=== PATIENT | female | born 1955 | race Caucasian/White ===

== ENCOUNTER 2018-04-11 08:22 | Outpatient (CLI) | payer OTHER ==
--- NOTE | 2018-04-11 10:25 | BD ---
DEXA BONE DENSITOMETRY: (Dual energy X-ray Absorptiometry) DATE: 04/11/2018. HISTORY: A 62-year-old postmenopausal white female for baseline, age-related osteoporosis screening examinatio n. COMPARISON: None available. FINDINGS: Height 64 inches. Weight 208 pounds. Age of menopause 48 years. The bone mineral density (BMD) is given in grams per square centimeter (g/cm2): LUMBAR SPINE: BMD(g/cm2) T-score Z-score L1: 1.080 0.8 2.4 L2: 1.255 2.1 3.8 L3: 1.256 1.6 3.4 L4: 1.072 0.1 2.0 Total: 1.155 1.0 2.7 HIP: Femoral neck: 0.748 -0.9 0.6 Total: 1.088 1.2 2.4 IMPRESSION: 1) The mean bone mineral density of the lumbar spine is normal. Fracture risk is not increased. 2) The bone mineral density of the femoral neck is normal. Fracture risk is not increased. JN R POS: CET
== END 2018-04-11 08:23 | disposition home or self-care (01) ==
LOC: BICMAMMO 08:22
PROVIDERS: ATTEND Family Medicine
DX: Z12.31 Encounter for screening mammogram for malignant neoplasm of breast (principal); Z13.820 Encounter for screening for osteoporosis; R92.1 Mammographic calcification found on diagnostic imaging of breast; Z78.0 Asymptomatic menopausal state; Z80.3 Family history of malignant neoplasm of breast
CPT/HCPCS: 77063; 77067; 77080

== ENCOUNTER 2020-02-13 10:50 | Outpatient (CLI) | payer MEDICARE ==
--- NOTE | 2020-02-13 11:36 | MMO ---
Bilateral MAMMO Bilat Screen DDI+RAY. CLINICAL HISTORY: Patient is 64 years old and is seen for screening. The patient has no personal history of cancer. VIEWS: The views performed were: bilateral craniocaudal with tomosynthesis and bilateral mediolateral oblique with tomosynthesis. FILMS COMPARED: The present examination has been compared to a prior imaging study performed at [facility] on 04/11/2018. This study has been interpreted with the assistance of computer-aided detection. MAMMOGRAM FINDINGS: There are scattered fibroglandular densities. There are stable benign appearing calcifications seen in both breasts. Nodularity is stable. There are no suspicious masses, suspicious calcifications, or new areas of architectural distortion. IMPRESSION: THERE IS NO MAMMOGRAPHIC EVIDENCE OF MALIGNANCY. A ROUTINE FOLLOW-UP MAMMOGRAM IN 1 YEAR IS RECOMMENDED. THE RESULTS OF THIS EXAM WERE SENT TO THE PATIENT. ACR BI-RADS Category 2 - Benign finding MAMMOGRAPHY NOTE: 1. A negative mammogram report should not delay a biopsy if a dominant of clinically suspicious mass is present. 2. Approximately 10% to 15% of breast cancers are not detected by mammography. 3. Adenosis and dense breasts may obscure an underlying neoplasm. Reported by: BRAULIO JONES MD Electonically Signed: [id number]
--- NOTE | 2020-02-13 12:43 | BD ---
EXAM: Bone densitometry using DEXA HISTORY: 64 yo female. Screening for postmenopausal osteoporosis FINDINGS: L1--bone mineral density 1.062 g/sq cm; T score 0.7 ; Z score 2.3 L2--bone mineral density 1.235 g/sq cm; T score 1.9 ; Z score 3.7 L3--bone mineral density 1.068 g/sq cm; T score 1.7 ; Z score 3.6 L4--bone mineral density 1.099 g/sq cm; T score 0.3 ; Z score 2.4 Total L1-L4--bone mineral density 1.158 g/sq cm; T score 1.0 ; Z score 2.9 Left femoral neck--bone mineral density0.704; T score -1.3 ; Z score 0.3 Total proximal left femur--bone mineral density 1.016; T score 0.6 ; Z score 1.9 There has been an interval improvement of 0.2% in the BMD of the lumbar spine and a reduction of 6. 6% in the BMD of the proximal femur since the previous study of 04/11/2018. The 10 year fracture risk for a major osteoporotic fracture is 8.5% and for a hip fracture is 0.8%. IMPRESSION: Osteopenia
== END 2020-02-13 10:51 | disposition home or self-care (01) ==
LOC: BICMAMMO 10:50
PROVIDERS: ATTEND Family Medicine
DX: Z12.31 Encounter for screening mammogram for malignant neoplasm of breast (principal); Z13.820 Encounter for screening for osteoporosis; Z78.0 Asymptomatic menopausal state
CPT/HCPCS: 77063; 77067; 77080

== ENCOUNTER 2020-10-13 14:47 | Outpatient (CLI) | payer MEDICARE | END 2020-10-13 14:48 | disposition home or self-care (01) | LOC: BICMRI 14:47 | PROVIDERS: ATTEND Family Medicine | DX: M79.662 Pain in left lower leg (principal); M71.22 Synovial cyst of popliteal space [Baker], left knee ==

== ENCOUNTER 2022-10-04 13:02 | Outpatient (CLI) | payer MEDICARE | END 2022-10-04 13:03 | disposition home or self-care (01) | LOC: BICMAMMO 13:02 | PROVIDERS: ATTEND Family Medicine | DX: Z12.31 Encounter for screening mammogram for malignant neoplasm of breast (principal); Z78.0 Asymptomatic menopausal state; M85.80 Other specified disorders of bone density and structure, unspecified site | CPT/HCPCS: 77063; 77067; 77080 ==